=== PATIENT | male | born 1935 ===

== ENCOUNTER → 2016-04-19 | Outpatient (CLI) | payer MEDICARE ==
[2016-04-19 14:38] LABS: BASO % 1 % (0-3); EOS % 4 % (0-3); HEMATOCRIT 37.4 % (39.0-53.0); HEMOGLOBIN 12.4 g/dL (13.0-17.5); LYMPH # 1.5 x10^3/uL (1.0-4.8); LYMPH % 20 % (24-48); MEAN CORPUSCULAR HEMOGLOBIN 30 pg (25-35); MEAN CORPUSCULAR HGB CONC 33 g/dL (31-37); MEAN CORPUSCULAR VOLUME 89 fL (79-100); MONO % 9 % (0-9); NEUT % 67 % (31-73); PLATELET COUNT 152 x10^3/uL (140-400); RED BLOOD COUNT 4.19 x10^6/uL (4.30-5.70); RED CELL DISTRIBUTION WIDTH 13.4 % (11.5-14.5); WHITE BLOOD COUNT 7.3 x10^3/uL (4.0-11.0)
[2016-04-19 14:40] LABS: BILIRUBIN,URINE NEGATIVE (NEG); GLUCOSE,URINE 500 mg/dL (NEG); NITRITE,URINE NEGATIVE (NEG); PH,URINE 5.5; PROTEIN,URINE NEGATIVE (NEG-TRACE)
[2016-04-19 14:51] LABS: BACTERIA,URINE 0 /HPF (0-FEW); CALCIUM 8.3 mg/dL (8.5-10.1); CREATININE 0.7 mg/dL (0.7-1.3); POTASSIUM 4.5 mmol/L (3.5-5.1); RBC,URINE 0 /HPF (0-2); SQUAMOUS EPITHELIAL CELL,UR MOD /LPF; WBC,URINE OCC /HPF (0-4)
[2016-04-19 14:56] LABS: ALBUMIN 3.1 g/dL (3.4-5.0); ALBUMIN/GLOBULIN RATIO 1.3 (1.0-1.7); TOTAL BILIRUBIN 0.7 mg/dL (0.2-1.0)
[2016-04-19 14:57] LABS: TOTAL PROTEIN 5.5 g/dL (6.4-8.2)
== END | disposition home or self-care (01) ==
LOC: SPEC 14:22
PROVIDERS: ATTEND Internal Medicine
DX: E11.40 Type 2 diabetes mellitus with diabetic neuropathy, unspecified (principal); E11.65 Type 2 diabetes mellitus with hyperglycemia
CPT/HCPCS: 36415; 80053; 81001; 85027